=== PATIENT | female | born 1950 | race African-American/Black ===

== ENCOUNTER → 2020-03-31 10:34 | Outpatient (BNVA) | payer MEDICARE, SELFPAY | PROVIDERS: PCP Physician Assistant; Visit Provider Physician Assistant | DX: E66.9 Obesity, unspecified (principal); Z68.34 Body mass index [BMI] 34.0-34.9, adult; E11.9 Type 2 diabetes mellitus without complications | CPT/HCPCS: 99202 ==

== ENCOUNTER 2020-04-08 06:26 | Outpatient (REF) | payer MEDICARE, SELFPAY ==
--- NOTE | 2020-04-08 06:50 | XR_ITS ---
EXAMINATION: XR CHEST CLINICAL INFORMATION: Encounter for preprocedural examination. COMPARISON: None TECHNIQUE: 2 views of the chest were obtained. FINDINGS: The lungs are well expanded. There is no focal consolidation, edema, or effusion. No pneumothorax. The cardiomediastinal silhouette is within normal limits of size with a calcified aorta. No acute osseous abnormality.. Soft tissue calcification noted adjacent to the left humeral greater tuberosity which may represent calcific tendinosis of the rotator cuff. XR/XR chest 2V IMPRESSION: No acute pulmonary finding.
[2020-04-08 07:35] LABS: MANUAL DIFF FLAG NO
[2020-04-08 07:46] LABS: Basophils Percent Auto 0.4 % (0-2); Eosinophils Absolute Auto 0.1 X10*3/uL (0.0-0.4); Eosinophils Percent Auto 1.3 % (0-4); Hemoglobin 12.3 g/dl (12.0-16.0); Imm Gran Abs Auto 0.02 X10*3/uL (0.00-0.03); Imm Gran Pct Auto 0.3 % (0.0-0.4); Lymphocytes Absolute Auto 2.9 X10*3/uL (1.2-4.9); Lymphocytes Percent Auto 42.7 % (20-40); Mean Corpuscular HGB Conc 32.4 g/dl (31.0-35.0); Mean Corpuscular Hemoglobin 28.1 pg (27.0-33.0); Mean Platelet Volume 9.9 fL (9.4-12.3); Monocytes Absolute Auto 0.4 X10*3/uL (0.1-1.2); Monocytes Percent Auto 5.8 % (2-11); Neutrophils Absolute Auto 3.4 X10*3/uL (2.0-8.3); Neutrophils Percent Auto 49.5 % (45-73); Platelet Count 340 X10*3/uL (160-400); Red Blood Count 4.37 X10*6/uL (4.20-5.50); Red Cell Distribution Width 14.4 % (11.0-16.0); White Blood Count 6.9 X10*3/uL (4.8-10.8)
[2020-04-08 08:06] LABS: C Reactive Protein 1.12 mg/dL (< or = 0.50); Cholesterol 123 mg/dL; HDL Cholesterol 40 mg/dL; Iron 44 mcg/dL (30-160); LDL Cholesterol Calculated 65 mg/dl; Percent Iron Saturation 13 % (15-50); Total Iron Binding Capacity 330 mcg/dL (228-428); Triglycerides 90 mg/dL; Unsaturated Iron Binding 286 ug/dL
[2020-04-08 08:29] LABS: Ferritin 101 ng/mL (10-250); TSH reflex Free T4 2.79 mIU/mL (0.32-4.0); Vitamin D 25-OH Total 16.3 ng/mL (>30)
[2020-04-08 08:42] LABS: Estimated Average Glucose 197 mg/dL; Hemoglobin A1c % 8.5 %
[2020-04-08 09:00] LABS: Vitamin B12 572 pg/mL (200-900)
[2020-04-09 18:52] LABS: Calcium (PTHI) 9.4 mg/dL (8.6-10.4); PTHI 47 pg/mL (14-64)
[2020-04-09 23:31] LABS: Insulin Level Total 8.2 uIU/mL
[2020-04-10 15:46] LABS: Zinc 81 mcg/dL (60-130)
[2020-04-13 08:53] LABS: Vitamin B1 <6 nmol/L (8-30)
[2020-04-15 17:26] LABS: Vitamin A 58 mcg/dL (38-98)
== END 2020-04-08 06:27 | disposition home or self-care (01) ==
LOC: HO.LAB 06:26
PROVIDERS: Visit Provider Physician Assistant
DX: Z01.818 Encounter for other preprocedural examination (principal); M32.9 Systemic lupus erythematosus, unspecified; Z98.84 Bariatric surgery status; E66.3 Overweight; Z68.35 Body mass index [BMI] 35.0-35.9, adult
CPT/HCPCS: 36415; 71046; 80061; 82306; 82607; 82728; 82746; 83036; 83525; 83540; 83970; 84425; 84443; 84590; 84630; 85025; 86140

== ENCOUNTER → 2020-04-21 08:36 | Outpatient (BNVA) | payer MEDICARE, SELFPAY | PROVIDERS: Visit Provider Physician Assistant | DX: E66.9 Obesity, unspecified (principal); E11.9 Type 2 diabetes mellitus without complications; E78.5 Hyperlipidemia, unspecified | CPT/HCPCS: Q3014 ==

== ENCOUNTER → 2020-05-05 08:16 | Outpatient (BNVA) | payer MEDICARE, SELFPAY | PROVIDERS: Visit Provider Dietitian, Registered | DX: Z76.89 Persons encountering health services in other specified circumstances (principal) ==

== ENCOUNTER → 2020-05-20 12:41 | Outpatient (BNVA) | payer MEDICARE, SELFPAY | PROVIDERS: Visit Provider Surgery | DX: E66.9 Obesity, unspecified (principal); Z68.31 Body mass index [BMI] 31.0-31.9, adult | CPT/HCPCS: 99212 ==

== ENCOUNTER → 2020-06-01 14:02 | Outpatient (BNVA) | payer MEDICARE, SELFPAY | PROVIDERS: PCP Internal Medicine; Visit Provider Surgery | DX: Z01.818 Encounter for other preprocedural examination (principal); E66.9 Obesity, unspecified; Z68.31 Body mass index [BMI] 31.0-31.9, adult | CPT/HCPCS: 99212 ==

== ENCOUNTER → 2020-06-10 08:01 | Outpatient (BNVA) | payer MEDICARE, SELFPAY | PROVIDERS: PCP Internal Medicine; Visit Provider Dietitian, Registered ==

== ENCOUNTER → 2020-06-22 13:15 | Outpatient (BNVA) | payer MEDICARE, SELFPAY | PROVIDERS: PCP Internal Medicine; Visit Provider Surgery | DX: E66.3 Overweight (principal); Z68.29 Body mass index [BMI] 29.0-29.9, adult | CPT/HCPCS: 99212 ==

== ENCOUNTER → 2020-07-06 08:24 | Outpatient (BNVA) | payer MEDICARE, SELFPAY | PROVIDERS: PCP Internal Medicine; Visit Provider Physician Assistant ==

== ENCOUNTER → 2020-07-09 08:28 | Outpatient (BNVA) | payer MEDICARE, SELFPAY | PROVIDERS: PCP Internal Medicine; Visit Provider Physician Assistant | DX: E66.9 Obesity, unspecified (principal) | CPT/HCPCS: Q3014 ==